=== PATIENT | female | born 1990 | race Caucasian/White ===

== ENCOUNTER 2016-07-18 15:39 | Inpatient (IN) | payer OTHER ==
[2016-07-18] MEDS ORDERED: PRENATAL VITAM1 EA12 PO (16:03)
[2016-07-21] MEDS ORDERED: IBUPROFEN800 M1 PO (11:55)
[2016-07-21] MEDS ORDERED: COLACE100 M1 PO (11:57)
[2016-07-21] MEDS ORDERED: NORCO 5-325 TA1 EACH PO (11:58)
== END 2016-07-21 18:12 | DRG 782 ==
LOC: OBGD 15:39
PROVIDERS: ADMIT Obstetrics & Gynecology
DX: O34.211 Maternal care for low transverse scar from previous cesarean delivery (principal); Z87.898 Personal history of other specified conditions